=== PATIENT | female | born 1960 | race Caucasian/White ===

== ENCOUNTER 2018-02-01 13:30 | Emergency (ER) | payer OTHER ==
[~2018-02-01] VITALS: Ht 162.6 cm; Wt 77.5 kg
[2018-02-01 13:33] VITALS: BP 153/74; PULSE 106; RESP 18; TEMP 97.5; O2SAT 98
[2018-02-01] MEDS ORDERED: PROPARACAINE HCL 0.5% OPHT SOLN 15 ML BTL EACH EYE ONE (13:45)
--- NOTE | 2018-02-01 14:12 | PD ---
HPI Chief Complaint: Eye Problems/Injury Time Seen by Provider: 13:39 Travel History International Travel<30 days: No Contact w/Intl Traveler<30days: No Traveled to known affect area: No History of Present Illness HPI 57-year-old female with multiple medical problems presents emergency department complaining of a left eye there is red and burning since yesterday. Patient states that she woke up with the left eye red and started developing a headache throughout the night as she was working. Patient states that the headache worsened since about 630 this morning and she decided to go to the urgent care for evaluation. Urgent care recommended she come here for evaluation. Patient states that she does feel like she has blurred vision. She is otherwise denies any spots or visual abnormalities. She does not have a foreign body sensation. Says her headache is located in the frontal aspect of her head rated 5/10. She actually saw an integrated marketing intern 1 month ago and since her glasses are fairly new to her. Says that she had a history of a brain tumor located in the similar area. This was resected in 2000. The integrated marketing intern mentioned to her that she had the beginning of a cataract however has not had any treatment for this. She has no history of glaucoma. No family history of glaucoma. Denies nausea, vomiting or diarrhea. PFSH Past Medical History Cancer: Yes (breast, clear for 4 years, lump being watched) Diabetes: Yes Patient Takes Glucophage: No Past Surgical History Cholecystectomy: Yes Hysterectomy: Yes Neurologic Surgery: Yes (brain tumor removed) Social History Alcohol Use: No Tobacco Use: No Substance Use: No Allergies-Medications (Allergen,Severity, Reaction): Coded Allergies: dulaglutide (Verified Allergy, Severe, anaphylaxis, 02/01/18) esomeprazole (Verified Allergy, Severe, anaphylaxis, 02/01/18) Penicillins (Verified Allergy, Unknown, 02/01/18) cephalexin (Verified Allergy, Unknown, hives, 02/01/18) Reported Meds & Prescriptions Reported Meds & Active Scripts Active Erythromycin Opth Oint 5 Mg/Gm Oint 1 Applic LEFT EYE BID 7 Days Review of Systems Except as stated in HPI: all other systems reviewed are Neg Physical Exam Narrative GENERAL: WD, WN SKIN: Focused skin assessment warm/dry. HEAD: Atraumatic. Normocephalic. EYES: Pupils equal and round. No scleral icterus. No drainage. PERRLA, EOMI. No obvious photophobia. Gerson-Pen left eye 13,17, right eye 11,14 No fluorescein stain uptake. Danny sign negative. with corrective lense: left eye 20/40, right eye 20/25 ENT: No nasal bleeding or discharge. Mucous membranes pink and moist. NECK: Trachea midline. No JVD. CARDIOVASCULAR: Regular rate and rhythm. No murmur appreciated. RESPIRATORY: No accessory muscle use. Clear to auscultation. Breath sounds equal bilaterally. GASTROINTESTINAL: Abdomen soft, non-tender, nondistended. Hepatic and splenic margins not palpable. MUSCULOSKELETAL: No obvious deformities. No clubbing. No cyanosis. No edema. NEUROLOGICAL: Awake and alert. No obvious cranial nerve deficits. Motor grossly within normal limits. Normal speech. PSYCHIATRIC: Appropriate mood and affect; insight and judgment normal. Data Data Last Documented VS Vital Signs Date Time Temp Pulse Resp B/P (MAP) Pulse Ox O2 Delivery O2 Flow Rate FiO2 02/01/18 13:50 16 02/01/18 13:33 97.5 106 153/74 (100) 98 Orders Orders Proparacaine 0.5% Opth Soln (Alcaine 0.5 (02/01/18 13:45) Ed Discharge Order (02/01/18 18:36) MDM Medical Decision Making Medical Screen Exam Complete: Yes Emergency Medical Condition: Yes Differential Diagnosis Scleral hemorrhage, glaucoma, corneal abrasion, corneal ulcer Narrative Course 57-year-old female presents emergency department for evaluation of left eye redness, irritation, blurred vision, referred by urgent care. She received new glasses approximately 1 month ago when she saw an integrated marketing intern. Initial concern was glaucoma of the left eye. Physical exam was not consistent with glaucoma. Of note, patient states that after the administration of proparacaine her pain and blurred vision decreased significantly. Because of patient's symptoms however I recommend she follow-up with an movers within 1-3 days. I discussed this case with my attending as well who recommended erythromycin ointment to avoid drying of the eye. Diagnosis Primary Impression: Subconjunctival hemorrhage Qualified Codes: H11.32 - Conjunctival hemorrhage, left eye Additional Impression: Iritis Referrals: Processing Archivist Patient Instructions: Blurred Vision (ED), General Instructions, Subconjunctival Hemorrhage (ED) Departure Forms: Tests/Procedures, Work Release Enter return to work date: Feb 04, 2018 Additional Instructions: Follow up with an movers within 2-3 days. Use cool compresses over your eye to reduce bleeding. If your symptoms worsen or persist, return to the ED. Scripts Erythromycin Opth Oint (Erythromycin Opth Oint) 5 Mg/Gm Oint 1 APPLIC LEFT EYE BID for Infection for 7 Days, #1 TUBE 0 Refills Prov: Lisa Kwon 02/01/18 Disposition: 01 DISCHARGE HOME Condition: Stable Lisa Kwon Feb 01, 2018 14:12
[2018-02-01] MEDS ORDERED: ERYTOIN10 LEFT EYE (18:34)
--- NOTE | 2018-02-01 18:37 | PD ---
Data Data Last Documented VS Vital Signs Date Time Temp Pulse Resp B/P (MAP) Pulse Ox O2 Delivery O2 Flow Rate FiO2 02/01/18 13:50 16 02/01/18 13:33 97.5 106 153/74 (100) 98 Orders Orders Proparacaine 0.5% Opth Soln (Alcaine 0.5 (02/01/18 13:45) MDM Supervised Visit with UDAY: Yes Narrative Course I, Dr. Green, have reviewed the advance practice practitioner's documentation and am in agreement, met with the patient face to face, made the diagnosis, and the medical decision making was done by me. *My assessment and Findings: I spoke with and evaluated the patient. She has left-sided eye discomfort with some redness. Eye pressures are normal. There is no hyphema or clouding of the cornea. There was no injury. She does have conjunctival hemorrhage on the right side. She complains of a feeling dry and it aches at times. I suspect she has an iritis. There is no ophthalmology on- call. We discussed that she will follow-up with an outpatient or the alternative is an emergent transfer to [place]. She would absolutely refuse that and does not think she needs it and does not want it. 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 Erythromycin ointment as prescribed and she will follow-up with ophthalmology. Return if worsening Diagnosis Primary Impression: Subconjunctival hemorrhage Qualified Codes: H11.32 - Conjunctival hemorrhage, left eye Additional Impression: Iritis Referrals: Forestry Supervisor Patient Instructions: General Instructions, Subconjunctival Hemorrhage (ED), Blurred Vision (ED) Departure Forms: Work Release, Enter return to work date: Tests/Procedures Additional Instruction: Follow up with an insurance service representative within 2-3 days. Use cool compresses over your eye to reduce bleeding. If your symptoms worsen or persist, return to the ED. Scripts Erythromycin Opth Oint (Erythromycin Opth Oint) 5 Mg/Gm Oint 1 APPLIC LEFT EYE BID for Infection for 7 Days, #1 TUBE 0 Refills Prov: Lisa Kwon 02/01/18 Disposition: 01 DISCHARGE HOME Condition: Stable Jason Green MD Feb 01, 2018 18:37
== END 2018-02-01 19:03 | disposition home or self-care (01) ==
LOC: NEPC 13:30
DX: H11.32 Conjunctival hemorrhage, left eye (principal); H20.9 Unspecified iridocyclitis
CPT/HCPCS: 99283